=== PATIENT | female | born 2000 | race African-American/Black ===

== ENCOUNTER 2019-06-04 06:49 | Emergency (ER) | payer OTHER ==
[~2019-06-04] VITALS: Ht 167.6 cm; Wt 63.5 kg
[2019-06-04 07:45] LABS: BASOPHILS 0.3 % (0.0-2.0); HEMATOCRIT 44.4 % (37.0-47.0); HEMOGLOBIN 15.1 gm/dL (12.0-15.0); LYMPHOCYTES 4.9 % (24.0-44.0); MCH 29.6 pg (26.0-34.0); MCV 86.9 fL (80.0-100.0); MONOCYTES 8.5 % (1.0-8.0); PLATELET COUNT 126 thou/uL (150-400); POLYS 86.3 % (36.0-66.0); RBC 5.11 mil/uL (4.20-5.00); RDW 13.3 % (10.5-14.5); WBC 17.4 thou/uL (4.0-11.0)
[2019-06-04 07:57] LABS: ANION GAP 15 mmol/L (7-16); BUN 14 mg/dL (7-18); CALCIUM 9.2 mg/dL (8.5-10.1); CHLORIDE 98 mmol/L (98-107); CO2 19 mmol/L (21-32); CREATININE 1.2 mg/dL (0.6-1.0); GLUCOSE 98 mg/dL (74-106); POTASSIUM 4.8 mmol/L (3.5-5.1); SODIUM 132 mmol/L (136-145)
--- NOTE | 2019-06-04 07:59 | EKG ---
[address] [place] [address] ELECTROCARDIOGRAM REPORT Name: NANO ORTA Room #: [facility] Ross#: [id number] Admission: 06/04/19 Attend Phys: Discharge: Date of : [birth year] Report #: [id number] THIS REPORT FOR: //name// [facility] ED Test Date: 2019-06-04 Test Time: 06:59:50 Pat Name: NANO ORTA Department: Room: Gender: Residential Sales: jlpollo : 2000 Requested By: Filemon Wilkerson Order Number: [id number] MD: Terell Goodson Measurements Intervals [place] Rate: 118 P: 81 NV: 158 QRS: 81 QRSD: 76 T: 34 QT: 298 QTc: 418 Interpretive Statements Sinus tachycardia Otherwise normal No previous ECG available for comparison Electronically Signed On 06-04-2019 7:59:26 CDT by Terell Goodson [email or web address] <ELECTRONICALLY SIGNED> By: Terell Goodson MD, [facility] 06/04/19 [id number] [id number] Terell Goodson MD, FACC /EPI
[2019-06-04 08:00] LABS: URINE BLOOD NEGATIVE (Negative); URINE COLOR YELLOW; URINE GLUCOSE-RANDOM* NEGATIVE (Negative); URINE KETONES 2+ (Negative); URINE LEUKOCYTES-REFLEX NEGATIVE (Negative); URINE NITRITE-REFLEX NEGATIVE (Negative); URINE PROTEIN (DIPSTICK) 2+ (Negative); URINE SPECIFIC GRAVITY >= 1.030 (1.005-1.035)
[2019-06-04 08:01] LABS: URINE CLARITY HAZY
[2019-06-04 08:03] LABS: ICTOTEST (BILI CONFIRMATORY) Negative (Negative); URINE BILIRUBIN NEGATIVE (Negative)
[2019-06-04 08:06] LABS: TROPONIN-I <0.06 ng/mL (<0.06)
[2019-06-04 08:13] LABS: AMP/METHAMP Negative (Negative); BARBITURATES Negative (Negative); BENZODIAZEPINES Negative (Negative); COCAINE Negative (Negative); METHADONE Negative (Negative); OPIATES Negative (Negative); PCP Negative (Negative)
[2019-06-04 08:26] LABS: CASTS None Seen /LPF (None Seen); CRYSTALS None Seen /LPF (None Seen); SQUAMOUS >10 Many /LPF (0-3); URINE WBC-REFLEX 6-15 Few /HPF (0-5)
[2019-06-04 08:27] LABS: URINE RBC 0-2 Rare /HPF (0-2)
[2019-06-04] MEDS ORDERED: ACETAMINOPHEN-1 EAC1 PO (10:44)
[2019-06-04 10:53] VITALS: BP 136/79
== END 2019-06-04 10:53 | disposition home or self-care (01) ==
LOC: ER 06:49
PROVIDERS: Emergency Medicine
DX: R55 Syncope and collapse (principal); J45.909 Unspecified asthma, uncomplicated; J02.9 Acute pharyngitis, unspecified